=== PATIENT | female | born 1980 | race Asian ===

== ENCOUNTER → 2021-05-31 13:32 | Outpatient (BNVA) | payer OTHER, SELFPAY | PROVIDERS: Visit Provider Advanced Practice Midwife ==

== ENCOUNTER 2021-08-22 16:14 | Outpatient (REF) | payer OTHER, SELFPAY ==
--- NOTE | ~2021-08-22 | MM_ITS ---
EXAMINATION: MM SCREENING DIGITAL BREAST TOMOSYNTHESIS, BILATERAL CLINICAL INFORMATION: Screening. Asymptomatic. Age 41. No prior breast imaging. The lifetime risk of breast cancer based on the Tyrer-Cuzick Model is 13%. COMPARISON: None (current study represents initial baseline exam). TECHNIQUE: Digital breast tomosynthesis is performed in both the craniocaudal and mediolateral oblique views along with computer-aided detection (CAD). Synthesized 2D images are generated from the tomosynthesis. FINDINGS: The breasts are heterogeneously dense, which may obscure small masses (ACR BI-RADS breast composition Category c). There are no significant masses, abnormal calcifications, or other abnormalities. The axilla and skin contours are unremarkable. MM/MM tomosynthesis screening BI IMPRESSION: No mammographic evidence of malignancy. ASSESSMENT: BI-RADS 1: Negative RECOMMENDATION: Routine annual mammography screening. This patient's information was entered into a reminder system with a target due date for their next mammogram.
== END 2021-08-22 16:15 | disposition home or self-care (01) ==
LOC: HO.MAMMO 16:14
PROVIDERS: PCP Family Medicine; Visit Provider Advanced Practice Midwife
DX: Z12.31 Encounter for screening mammogram for malignant neoplasm of breast (principal)
CPT/HCPCS: 77063; 77067

== ENCOUNTER 2022-06-07 13:25 | Outpatient (REF) | payer OTHER, SELFPAY ==
[2022-06-08 06:34] LABS: CT PCR NOT DETECTED (Not Detect.); NG PCR NOT DETECTED (Not Detect.)
[2022-06-09 21:16] LABS: HPV mRNA E6/E7 rflx Not Detected (Not Detected)
== END 2022-06-07 13:26 | disposition home or self-care (01) ==
LOC: HO.LAB 13:25
PROVIDERS: Visit Provider Advanced Practice Midwife
DX: Z01.419 Encounter for gynecological examination (general) (routine) without abnormal findings (principal); Z11.51 Encounter for screening for human papillomavirus (HPV); Z20.2 Contact with and (suspected) exposure to infections with a predominantly sexual mode of transmission
CPT/HCPCS: 87491; 87591; 87624; 88142

== ENCOUNTER 2022-08-24 09:18 | Outpatient (REF) | payer OTHER, SELFPAY ==
--- NOTE | ~2022-08-24 | MM_ITS ---
EXAMINATION: MM SCREENING DIGITAL BREAST TOMOSYNTHESIS, BILATERAL CLINICAL INFORMATION: Screening. Asymptomatic. The lifetime risk of breast cancer based on the Tyrer-Cuzick Model is 12.5%. COMPARISON: Mammography: August 22, 2021 TECHNIQUE: Digital breast tomosynthesis is performed in both the craniocaudal and mediolateral oblique views along with computer-aided detection (CAD). Synthesized 2D images are generated from the tomosynthesis. FINDINGS: The breasts are extremely dense, which lowers the sensitivity of mammography (ACR BI-RADS breast composition Category d). There are no significant masses, abnormal calcifications, or other abnormalities. MM/MM tomosynthesis screening BI IMPRESSION: No significant change from ASSESSMENT: BI-RADS 1: Negative RECOMMENDATION: Routine annual mammography screening. This patient's information was entered into a reminder system with a target due date for their next mammogram.
== END 2022-08-24 09:19 | disposition home or self-care (01) ==
LOC: HO.MAMMO 09:18
PROVIDERS: Visit Provider Advanced Practice Midwife
DX: Z12.31 Encounter for screening mammogram for malignant neoplasm of breast (principal)
CPT/HCPCS: 77063; 77067

== ENCOUNTER 2023-04-18 08:16 | Outpatient (AMB) | payer OTHER, SELFPAY ==
[2023-04-18 08:18] VITALS: BP 129/62; PULSE 75; BMI 24.4
--- NOTE | 2023-04-18 08:18 | A.OFFVIS_ITS ---
Intake Vital Signs 04/18/23 08:18 Height 4 ft 11 in Weight 121 lb BMI 24.4 BP 129/62 Blood Pressure Location Rt brachial Position Sitting Pulse 75 Intake Visit Reasons: external hemorrhoids Intake Note: This patient presents for an assessment for external hemorrhoids. Patient c/o; ? perianal abscess, denies draining or bleeding, hard stools. Photolettering Machine Operator Required: No Adult Educator: Adult Educator offered & declined Accompanied by: Self / Same As Patient Allergies No Known Allergies [No Known Allergies*] Allergy (Verified 04/18/23 08:31) Medication List - Last Reconciled 04/18/23 by Dominic Ramirez MD No Known Home Meds PNV,calcium 18-kozj-ofhrv acid 27 mg iron- 1 mg ( Vitamins Plus Low Iron) 1 tab PO DAILY HPI external hemorrhoids HPI Details 42-year-old female referred for anal swelling. She 1st noticed this about 2 months ago. She says that 1 area of her anus swelled up with subsequent pain discomfort. This appeared to have drained spontaneously. She described relief of her but she says that a week or 2 later, this had becomes more swollen again and drained spontaneously as well. She says she may have had this for about 2-3 times already. She states that at this time, she feels well and denies any swelling. She describes the drainage as serosanguineous but may year as ?pus . She thinks that this swelling may have been worsen when she ever she had hard stools. She denies a history of constipation. [facility] Medical History (Updated 04/18/23 @ 08:59 by Dominic Ramirez MD) Anal pain COVID-19 vaccine series completed Surgical History Hx of section Family History Mother High blood pressure Social History Household Members: Spouse and Children Alcohol intake: never Patient Tobacco Use Status: Never used Tobacco Current occupational status: unemployed Current occupation: stay at home mom Review of Systems Const Denies chills and Denies fever(s) Card Denies chest pain, Denies dyspnea and Denies dyspnea on exertion Resp Denies cough, Denies dyspnea and Denies dyspnea on exertion GI Denies hematochezia and Denies change in bowel habits Denies hematuria Musc Denies back pain and Denies limited range of motion Neuro Denies focal weakness and Denies convulsions Psych Denies depression and Denies mood swings Physical Exam Vital Signs: Last Vital Signs Pulse 75 04/18/23 08:18 BP 129/62 04/18/23 08:18 BMI result Body Mass Index 24.4 Const General: comfortable and no acute distress Orientation/consciousness: patient oriented x3 Neck Neck: Yes no lymphadenopathy Resp Auscultation: clear to auscultation bilaterally Cardio Rhythm: regular rhythm GI Other: Rectal exam - mild induration on the right posterolateral area at the anal verge, with a small sinus, dry, no tenderness, no fluctuance, no discharge at t his time Palpation (GI): Soft to palpation, nontender and no guarding Neuro General: patient oriented x3 Office Procedures Anoscopy She was placed in leti-knife position. The anoscope was gently inserted. A full examination of the anal canal was done. There was no obvious internal fistulous opening. No induration. She had a mixed column of internal external hemorrhoids on the left side. There was no fissure or obvious induration in the anal canal itself, no discharge [id number] Assessment & Plan Assessment & Plan (1) Anal pain: Code(s): K62.89 - Other specified diseases of anus and rectum Plan: She has had this episodes of swelling on the right side her anus with spontane ous drainage. Examination currently does not reveal any fluctuance or discharge although there may be a little bit of induration with a small sinus. This may be perianal cyst at the anal verge as I do not see any obvious fistulous tract. Another differential is a chronically thrombosed hemorrhoid that may have been draining. I offered her the option of proceeding with exam under anesthesia. Explained to her the technique of this procedure as well as the possibility of proceeding with seton drainage. At this time, she says that this is really not bothering her. She says she will come back to the office if she decides to proceed. Coding Level of Care Code New Pt Level 3 (59217) Diagnoses Anal pain K62.89 CPT Codes Details - CPT: 97729-[id number] ([id number])
== END 2023-04-18 08:49 | disposition home or self-care (01) ==
PROVIDERS: PCP Family Medicine; Visit Provider Surgery
DX: K64.8 Other hemorrhoids (principal); K62.89 Other specified diseases of anus and rectum
CPT/HCPCS: 46600; 99203

== ENCOUNTER → 2023-04-18 08:16 | Outpatient (BNVA) | payer OTHER, SELFPAY | PROVIDERS: PCP Family Medicine; Visit Provider Surgery | DX: K62.89 Other specified diseases of anus and rectum (principal); K64.4 Residual hemorrhoidal skin tags | CPT/HCPCS: 46600 ==

== ENCOUNTER 2023-08-29 09:48 | Outpatient (REF) | payer OTHER, SELFPAY ==
--- NOTE | ~2023-08-29 | MM_ITS ---
EXAMINATION: MM SCREENING DIGITAL BREAST TOMOSYNTHESIS, BILATERAL CLINICAL INFORMATION: Screening. Asymptomatic. COMPARISON: Mammography: This study is compared with the prior exams dating back to 2020. TECHNIQUE: Digital breast tomosynthesis is performed in both the craniocaudal and mediolateral oblique views along with computer-aided detection (CAD). Synthesized 2D images are generated from the tomosynthesis. FINDINGS: The breasts are heterogeneously dense, which may obscure small masses (ACR BI-RADS breast composition Category c). At the inferior most aspect of the left breast, at the fat glandular interface and at a middle depth, there is a small asymmetry for which additional mammographic and targeted sonographic imaging is advised. In the right breast, there are no significant masses, abnormal calcifications, or other abnormalities. There are few, unchanged, bilateral benign calcifications in each breast. MM/MM tomosynthesis screening BI IMPRESSION: Left breast asymmetry warrants additional mammographic and targeted sonographic evaluation. No mammographic signs of malignancy right breast. ASSESSMENT: BI-RADS BI-RADS 0 - Incomplete: Needs additional Imaging. RECOMMENDATION: 1. Additional views of the left breast 2. Targeted ultrasound if warranted after review of the additional views. 3. Radiology department staff will contact the patient for additional imaging. Additional Imaging required This examination should not preclude the clinical evaluation of a suspicious palpable abnormality. This patient's information was entered into a reminder system with a target due date for their next mammogram.
== END 2023-08-29 09:49 | disposition home or self-care (01) ==
LOC: HO.MAMMO 09:48
PROVIDERS: PCP Family Medicine; Visit Provider Family Medicine
DX: Z12.31 Encounter for screening mammogram for malignant neoplasm of breast (principal)
CPT/HCPCS: 77063; 77067

== ENCOUNTER → 2023-08-29 10:00 | Outpatient (BNV) | payer OTHER, SELFPAY | PROVIDERS: PCP Family Medicine; Visit Provider Radiology Diagnostic Radiology | DX: Z12.31 Encounter for screening mammogram for malignant neoplasm of breast (principal) | CPT/HCPCS: 77063; 77067 ==

== ENCOUNTER 2023-10-10 12:50 | Outpatient (REF) | payer OTHER, SELFPAY | END 2023-10-10 12:51 | disposition home or self-care (01) | LOC: HO.MAMMO 12:50 | PROVIDERS: PCP Family Medicine; Visit Provider Family Medicine | DX: R92.8 Other abnormal and inconclusive findings on diagnostic imaging of breast (principal) | CPT/HCPCS: 77061; 77065 ==

== ENCOUNTER → 2023-10-10 13:00 | Outpatient (BNV) | payer OTHER, SELFPAY | PROVIDERS: PCP Family Medicine; Visit Provider Radiology Diagnostic Radiology | DX: R92.8 Other abnormal and inconclusive findings on diagnostic imaging of breast (principal) | CPT/HCPCS: 77061; 77065 ==

== ENCOUNTER 2023-10-11 12:42 | Outpatient (AMB) | payer OTHER, SELFPAY ==
--- NOTE | 2023-10-11 12:44 | MHC.OFFVIS ---
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 Doing well with no concerns. She tries to eat healthy and stays active with exercise. Regular monthly menses. Currently is sexually active. She denies vaginal itching and irritation. STI screening offered; she declines. Denies family history of breast, ovarian or colon cancer. Last pap smear 2021, negative. Mammogram: 10/10/2023. [facility] Medical History Anal pain COVID-19 vaccine series completed Surgical History Hx of section Family History (Updated 10/11/23 @ 13:02 by Jessie Lemos CNM) Mother High blood pressure Maternal Grandmother Ovarian cancer Social History Household Members: Spouse and Children Alcohol intake: never Patient Tobacco Use Status: Never used Tobacco Current occupational status: unemployed Current occupation: stay at home mom Female Reproductive History Menstrual Date of last menstrual period: 08/27/23 Total pregnancies: 1 Full term: 1 Number of Living Children: 1 Date of last pap smear: 06/07/22 (neg pap and hpv) Date of Mammogram: 08/29/23 (Birad 0) Review of Systems Const All systems reviewed & are unremarkable except as noted in HPI and below Reports as per HPI Eyes Reports no additional complaints ENT Reports no additional complaints Card Reports no additional complaints Resp Reports no additional complaints GI Reports as per HPI and Reports no additional complaints Reports as per HPI Musc Reports no additional complaints Skin/Breast Reports as per HPI Neuro Reports no additional complaints Psych Reports no additional complaints Endo Reports no additional complaints Charlie/Lymph Reports no additional complaints Aller/Immun Reports no additional complaints Physical Exam Vital Signs: Last Vital Signs BP 92/60 01/04/24 12:46 BMI result Body Mass Index 24.6 Const General: cooperative, healthy appearing, no acute distress, well developed and alert Orientation/consciousness: patient oriented x3 HEENT Head: Yes normal to inspection Eyes General: appearance normal, both eyes and all related structures Neck Neck: Yes normal visual inspection Thyroid: Thyroid normal Chest Chest palpation & inspection: normal inspection of the chest and other (no puckering, dimpling, peau de orange, retraction, discharge, masses) Breast/axilla inspection: normal inspection of the breasts Breast/axilla palpation: normal palpation of the breasts Resp Effort & Inspection: normal respiratory effort GI Inspection: Yes normal to inspection Palpation (GI): Soft to palpation Rectal Exam - Female: deferred General: Yes bladder normal to palpation External Female Exam: normal external appearance and normal appearance of the urethra Speculum Exam - Vagina: normal appearance of the vagina, normal palpation and normal vaginal discharge Speculum Exam - Cervix: normal appearance of the cervix and normal palpation Bimanual exam- vagina & uterus: normal bimanual exam, normal palpation, uterine size normal, bladder normal to palpation, normal palpation and non-tender Bimanual Exam- Adnexa, other: no masses Skin General skin exam: no rashes or lesions noted Rashes: no rashes Neuro General: patient oriented x3 Cognition (Neuro): normal cognition Extrem General: Yes normal to inspection Psych Attitude: cooperative Thought process: Normal thought process present Assessment & Plan Assessment & Plan (1) Encounter for annual routine gynecological examination: Code(s): Z01.419 - Encounter for gynecological examination (general) (routine) without abnormal findings Plan: Discussed: Current recommendations for pap smears per ASCCP guidelines. Breast awareness and periodic breast exams. Maintain a healthy lifestyle including a well balanced diet and routine exercise. Declines control. Mammogram yearly. Colonoscopy >45, or at risk sooner. All of her questions and concerns were addressed to the best of my ability. RTO in one year for annual transportation specialist examination. This note is constructed using voice recognition software. While every effort has been made to ensure accuracy, liquor grinder mill operator errors may have been included. Coding Level of Care Code Est Pt Prev Care 40-64y(85103) Diagnoses Encounter for annual routine gynecological examination Z01.419
[2023-10-11 12:46] VITALS: BP 92/60; BMI 24.6
== END 2023-10-11 13:12 | disposition home or self-care (01) ==
LOC: HO.HWS 12:42
PROVIDERS: PCP Family Medicine; Visit Provider Advanced Practice Midwife
DX: Z01.419 Encounter for gynecological examination (general) (routine) without abnormal findings (principal)
CPT/HCPCS: 99396

== ENCOUNTER → 2023-10-11 12:42 | Outpatient (BNVA) | payer OTHER, SELFPAY | PROVIDERS: PCP Family Medicine; Visit Provider Advanced Practice Midwife ==

== ENCOUNTER 2024-10-09 12:59 | Outpatient (AMB) | payer OTHER, SELFPAY ==
--- NOTE | 2024-10-09 13:02 | A.OFFVIS_ITS ---
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 Doing well with drywall sander concerns. Regular monthly menses. Currently is sexually active. She denies vaginal itching and irritation. STI screening offered; she declines. She tries to eat healthy and stays active with exercise. Denies family history of breast or colon cancer. FH ovarian cancer. Last pap smear 2021, negative. Mammogram: 2023. [facility] Medical History Anal pain COVID-19 vaccine series completed Surgical History Hx of section Family History (Updated 10/09/24 @ 13:08 by JAIME Cole) Mother High blood pressure Maternal Grandmother Ovarian cancer Social History Household Members: Spouse and Children Alcohol intake: never Patient Tobacco Use Status: Never used Tobacco Current occupational status: unemployed Current occupation: stay at home mom Female Reproductive History Menstrual Duration of menses: 3-5 days Date of last menstrual period: 09/21/24 control method: natural family planning and other (Withdrawal) Total pregnancies: 1 Full term: 1 Number of Living Children: 1 Date of last pap smear: 06/07/22 (neg pap and hpv) Date of Mammogram: 10/10/23 (birad 2) Review of Systems Const All systems reviewed & are unremarkable except as noted in HPI and below Reports as per HPI Eyes Reports no additional complaints ENT Reports no additional complaints Card Reports no additional complaints Resp Reports no additional complaints GI Reports as per HPI and Reports no additional complaints Reports as per HPI Musc Reports no additional complaints Skin/Breast Reports as per HPI Neuro Reports no additional complaints Psych Reports no additional complaints Endo Reports no additional complaints Charlie/Lymph Reports no additional complaints Aller/Immun Reports no additional complaints Physical Exam Vital Signs: Last Vital Signs BP 96/60 01/02/25 13:03 BMI result Body Mass Index 24.6 Const General: cooperative, healthy appearing, no acute distress, well developed and alert Orientation/consciousness: patient oriented x3 HEENT Head: Yes normal to inspection Eyes General: appearance normal, both eyes and all related structures Neck Neck: Yes normal visual inspection Thyroid: Thyroid normal Chest Chest palpation & inspection: normal inspection of the chest and other (no puckering, dimpling, peau de orange, retraction, discharge, masses) Breast/axilla inspection: normal inspection of the breasts Breast/axilla palpation: normal palpation of the breasts Resp Effort & Inspection: normal respiratory effort GI Inspection: Yes normal to inspection and Yes scar Palpation (GI): Soft to palpation Rectal Exam - Female: deferred General: Yes bladder normal to palpation External Female Exam: normal external appearance and normal appearance of the urethra Speculum Exam - Vagina: normal appearance of the vagina, normal palpation and normal vaginal discharge Speculum Exam - Cervix: normal appearance of the cervix and normal palpation Bimanual exam- vagina & uterus: normal bimanual exam, normal palpation, uterine size normal, bladder normal to palpation, normal palpation and non-tender Bimanual Exam- Adnexa, other: no masses Skin General skin exam: no rashes or lesions noted Rashes: no rashes Neuro General: patient oriented x3 Cognition (Neuro): normal cognition Extrem General: Yes normal to inspection Psych Attitude: cooperative Thought process: Normal thought process present Assessment & Plan Assessment & Plan (1) Encounter for annual routine gynecological examination: Code(s): Z01.419 - Encounter for gynecological examination (general) (routine) without abnormal findings Category: Medical Plan Discussed: Current recommendations for pap smears per ASCCP guidelines. Breast awareness and periodic breast exams. Mammogram yearly. Maintain a healthy lifestyle including a well balanced diet and routine exercise. Perimenopause changes, if missed menses to do a home test and report to the office if positive. Patient verbalizes understanding and agrees to the plan of care. She was given opportunity to ask questions and all questions were answered to the best of my ability. RTO in one year for annual drywall sander examination. This note is constructed using voice recognition software. While every effort has been made to ensure accuracy, automatic driller and reamer errors may have been included. Coding Level of Care Code Est Pt Prev Care 40-64y(30891) Diagnoses Encounter for annual routine gynecological examination Z01.419
[2024-10-09 13:03] VITALS: BP 96/60; BMI 24.6
== END 2024-10-09 13:47 | disposition home or self-care (01) ==
PROVIDERS: PCP Family Medicine; Visit Provider Advanced Practice Midwife
DX: Z01.419 Encounter for gynecological examination (general) (routine) without abnormal findings (principal)
CPT/HCPCS: 99396; 99459

== ENCOUNTER → 2024-10-09 12:59 | Outpatient (BNVA) | payer OTHER, SELFPAY | PROVIDERS: PCP Family Medicine; Visit Provider Advanced Practice Midwife ==

== ENCOUNTER 2024-10-22 13:40 | Outpatient (REF) | payer OTHER, SELFPAY ==
--- OUTSIDE RECORDS SUMMARY | 2024-10-22 16:09 | XMS_ITS | Data Portability ---
[facility] , [facility] Address [address] [place] [address] Care Team Providers Care Outreach Librarian Name Role Phone LULU ESCALERA Primary Care Provide r [facility] [address] Mender Assessment No assessment recorded. Plan of Treatment Reminders Order Date Submit Date Provider Last Modified By Organization Details Last Modified Time Details Appointments None recorded. Lab rapid strep group A, throat 2022 023 [facility], [address] [place], [address], 3 14:45:51 Referral general surgeon referral - hx of ext hemorrhoid s but in the past 2 months hx of perirectal abscess (urgent care) and then again last week but resolved after drainage. Please eval and tx. 2022 023 [email or web address] Nidhi Acosta MD, [address] , [place], [address], 3 10:18:42 Procedures None recorded. Surgeries None recorded. Imaging None recorded. Medication Orders simethicon e 125 mg capsule 2022 023 [email or web address], [address] [place], [address], 3 14:06:28 hydroxyzin e HCl 10 mg tablet 2022 023 [email or web address], [address] [place], [address], 14:06:35 loratadine 10 mg tablet 2022 023 [facility], [address] [place], [address], 14:06:42 Patient TargetsNo targets recorded. Patient Instructions Encounter Date Encounter Id Patient Instructions Last Modified By Organization Details Last Modified Time 03/01/2023 [id number] pityriasis rosea: care instructions [email or web address] Not available 03/01/2023 14:04:23 Upper Respiratory Infection Drink plenty of fluids, such as water, diluted juice, decaffeinated tea, or clear broth. Avoid dairy products if they cause you congestion. Use a nasal rinse, such as Netti Pot. Keep room humidified and take warm showers for the steam. Over the counter products for congestion and cough are OK, but will only provide partial relief. If you have high blood pressure, check with your pharmacist for safe alternatives. Remember that cold symptoms can last as long as 2-3 weeks: stuffiness, cough and sore throat. Mucinex (generic name is guaifenesin) can help thin mucus and make the cough easier to break up. Please call if your symptoms worsen considerably in 3 days, or you have a high fever. [email or web address] Not available 03/01/2023 13:37:02 04/13/2023 [id number] After a discussion of treatment and medication options, which included consideration of the best practices in medicine, a medical plan was provided. The patient's opinions and concerns were included in this treatment plan and goal. 1. we do not have the urgent care note 2. most likely, pt had a thrombosed hemorrhoid? exam today was normal with a skin tag 3. referral to general surgery of excision carlos Not available 04/14/2023 21:33:57 08/24/2023 [id number] Well Visit, Ages 18 to 65: Care Instructions carlos Not available 08/24/2023 16:16:15 After a discussion of treatment and medication options, which included consideration of the best practices in medicine, a medical plan was provided. The patient's opinions and concerns were included in this treatment plan and goal. * Maintain 1200 mg of calcium from food sources daily, * Take vitamin D 7500-6948 units daily to help absorption of calcium into your bones * Use sunblock consistently * Review the website: OldN4G.compt.org to get more information on the Mediterranean diet - a heart healthy eating plan * Immunizations up to date; COVID vaccine booster recommended. Please get your Shingrix at the pharmacy. * The current guidelines from the [place] [employer] is moderate aerobic physical activity about 30 minutes for 5 days of the week. Walking at a moderately fast pace, as tolerated. Try to build muscle mass. This will help maintain bone strength and support your joints. * Pap smear is due 2023. * Normal cytology and negative HPV in 2019. * Colonoscopy is due age 46. * Health care proxy discussed and no changes. * Wellness Visit in 1 year * See your dentist at least twice a year. * Get your vision checked at least once every 2 years. * Discussed labs - 2020 excellent * when rash on leg recurs, will take a photo and send via portal. carlos Not available 08/24/2023 21:25:33 Reason for Referral General Surgeon Referral for External hemorrhoids hx of ext hemorrhoids but in the past 2 months hx of perirectal abscess (urgent care) and then again last week but resolved after drainage. Please eval and tx. Referring Physician: Lulu Barlow, Family Medicine, Encounter Date: 04/13/2023 Results Created Date Observation Date Name Description Value Unit Range Abnormal Flag Note LastModifiedBy Organization Detail LastModifiedTime 03/01/20 23 03/01/2023 POCST REP strep A POC NEGATI VE Not Available [facility] [address] [place], [address], 03/01/2023 13:55:21 09/14/20 23 08/29/2023 MAMMO , scree gigi, tomos ynthe sis, bilat eral No observ ation record ed. deya [facility] [address] [place], [address], 10/10/2023 19:04:19 10/11/19 24 10/10/2023 MAMMO , diagn ostic , tomos ynthe sis, unila teral No observ ation record ed. [facility] [address] [place], [address], 10/12/2023 14:01:30 Result Notes None recorded. Problems No Known Problems Procedures Surgical History Date Name Laterality Status Provider Name and Address Organization Details Recorded Time prevention-ros ua alcohol misuse screening completed Gina Allred [facility] 04/14/2021 07:39:35 4 Anoscopy completed Lulu Barlow MD [address] [place] [address], [phone], [facility] 12/21/2013 06:42:43 Imaging Results Imaging Date Name Status LastModified by Organization Details LastModified Time 08/29/2023 MAMMO, screening, tomosynthesis, bilateral completed carlos [address] [place], [address], 10/10/2023 19:04:19 10/10/2023 MAMMO, diagnostic, tomosynthesis, unilateral completed [address] [place], [address], 10/12/2023 14:01:30 Procedure Notes None recorded. Medical Equipment None Reported. Allergies No known drug allergies Medications Name Sig Start Date Stop Date Status Note LastModified by Organization Details LastModified Time clindamyci n phosphate 1 % lotn 05/23 completed Not Available Not Available Not Available doxycyclin e monohydrat e 50 mg tabs 05/23 completed Not Available Not Available Not Available desonide 0.05 % topical cream APPLY SPARINGL Y AND RUB GENTLY INTO THE AFFECTED AREA(S) TWICE A DAY FOR 4 WEEKS 08/24 completed Not Available Not Available Not Available hydrocorti sone 1 % lotion APPLY TO AFFECTED AREA(S) TWO TIMES A DAY FOR 10 DAYS 05/23 completed Not Available Not Available Not Available metronidaz ole 500 mg tablet 08/24 completed Not Available Not Available Not Available Vitamin tablet Take 1 tablet every day by oral route as needed for 90 days. 08/24 completed Not Available Not Available Not Available cephalexin 500 mg capsule 05/23 completed Not Available Not Available Not Available diphenhydr amine 25 mg capsule TAKE ONE CAPSULE BY MOUTH EVERY 6 HOURS FOR 7 DAYS 05/23 completed Not Available Not Available Not Available Mapap (acetamino phen) 325 mg tablet TAKE TWO TABLETS BY MOUTH EVERY 6 HOURS NEEDED 05/23 completed Not Available Not Available Not Available Gas Relief Extra Strength 125 mg capsule TAKE ONE CAPSULE BY MOUTH EVERY 6 HOURS NEEDED 08/24 completed Not Available Not Available Not Available lidocaine HCl 2 % mucosal solution TAKE 10 ML BY MOUTH EVERY 4 TO 6 HOURS NEEDED active Not Available Not Available No t Available hydrocorti sone 2.5 % topical cream APPLY A THIN LAYER TOPICALL Y TO AFFECTED AREA S) TWO TIMES A DAY active Not Available Not Available No t Available ibuprofen 600 mg tablet as needed 12/22 completed Not Available Not Available Not Available polyethyle ne glycol 3350 17 gram/dose oral powder USE 1 CAPFUL DISSOVED IN 4-8 OUNCES LIQUID PRIOR TO ADMINIST RATION ONCE DAILY NEEDED. MAX OF 1 CAPFUL PER DAY 08/24 completed as needed Not Available Not Available Not Available hydroxyzin e HCl 10 mg tablet TAKE 1 TABLET BY MOUTH EVERY 8 HOURS NEEDED. 08/24 completed Not Available Not Available Not Available loratadine 10 mg tablet TAKE ONE TABLET BY MOUTH EVERY DAY 08/24 completed Not Available Not Available Not Available amoxicilli n 875 mg-potassi um clavulanat e 125 mg tablet 04/13 completed Not Available Not Available Not Available clindamyci n phosphate 1 % topical solution APPLY TO AFFECTED AREA ON CHEST AND BACK TWICE A DAY NEEDED active Not Available Not Available No t Available oxycodone 5 mg tablet 05/23 completed Not Available Not Available Not Available Vitamins Plus Low Iron 27 mg iron-1 mg tablet TAKE ONE TABLET BY MOUTH EVERY DAY 08/24 completed Not Available Not Available Not Available Vitals Date Recorded Body weight Heart rate Systolic blood pressure Diastolic blood pressure Provider Name and Address Organization Details Last Updated DateTime 02/02/2023 45097.78 g 84 /min 110 mm[Hg] 78 mm[Hg] [facility] 02/02/2023 11:28:41 Date Recorded Body height Body mass index (BMI) Body weight Body temperature Heart rate Systolic blood pressure Diastolic blood pressure Provider Name and Address Organization Details Last Updated DateTime 3 148.59 cm 4.3 kg/m2 9525.44 g 98.6 [degF] 71 /min 128 mm[Hg] 62 mm[Hg] Monica Leal [facility] 3 13:45:11 Date Recorded Body height Body mass index (BMI) Body weight Heart rate Systolic blood pressure Diastolic blood pressure Provider Name and Address Organization Details Last Updated DateTime 3 148.59 cm 25 kg/m2 03858.4 8 g 68 /min 104 mm[Hg] 68 mm[Hg] Katia Dongyajaira [facility] 3 09:57:20 Date Recorded Body height Body mass index (BMI) Body weight Heart rate Systolic blood pressure Diastolic blood pressure Provider Name and Address Organization Details Last Updated DateTime 3 147.32 cm 25.1 kg/m2 24813.0 8 g 80 /min 108 mm[Hg] 68 mm[Hg] [facility] 14:10:15 Social History Question Answer Notes LastModified by Organizat ion Details LastModified Time Tobacco Smoking Status Never Smoker Lulu Barlow MD [address] [place] [address], [phone], [facility] 04/03/2014 15:00:44 What Is Your Level Of Alcohol Consumption? None Information not available 12/22/2016 What Is Your Level Of Caffeine Consumption? None Information not available 12/22/2016 What Type Of Diet Are You Following? REGULAR Information not available 12/22/2016 Which Illicit Or Recreational Drugs Have You Used? None Information not available 12/22/2016 Do You Or Have You Ever Used E-cigarettes Or Vape? Never Used Electronic Cigarettes Information not available 04/14/2021 How Many Days In The Past Year Have You Had A Heavy Drinking Consumption (4+ Female, 5+ Male)? 0 Information not available 04/03/2014 Are There Any Guns Present In Your Home? No Information not available 12/22/2016 Live Alone Or With Others? With Others Srinath gonzalez Information not available 04/03/2014 Does The Patient Have Difficulty Speaking Guyanese? No Information not available 06/25/2015 Does The Patient Have Difficulty Reading Guyanese? No Information not available 06/25/2015 Patient Has Health Care Proxy Signed And In Chart Yes [email or web address] Information not available 11/22/2018 Marital Status Inf ormation not available 12/19/2013 Mosquito Repellent Used Routinely No Information not available 12/22/2016 What Was The Date Of Your Most Recent Tobacco Screening? 08/24/2023 Information not available 08/24/2023 How Many Children Do You Have? 1 Lizzeth Female February 2016 Information not available 05/23/2016 Seat Belts Used Routinely Yes Information not available 12/22/2016 Smoke Alarm In Home Yes Information not available 12/22/2016 Do You Or Have You Ever Used Smokeless Tobacco? Never Used Smokeless Tobacco Information not available 04/14/2021 What Types Of Sporting Activities Do You Participate In? None Information not available 12/22/2016 Do You Use Sunscreen Routinely? Yes Information not available 12/22/2016 Do You Or Have You Ever Used Any Other Forms Of Tobacco Or Nicotine? No Information not available 08/24/2023 Sex: Female Functional Status None recorded. Mental Status None recorded. Family History Relationship Description Onset Age of this Age Resolved Age Notes LastModified by Organization Details LastModified Time Mother Hypertensive disorder jackcast illo Not available 04/03/2014 15:00:44 Father Malignant tumor of lung 65 65 briandelcast illo Not available 08/24/2023 14:31:46 Sister Diabetes mellitus 37 [email or web address] illo Not available 08/24/2023 14:32:07 Medical History No medical history recorded. Gynecological History Statement/Question Response Menses Monthly N History of Abnormal Pap No Current Control Method None Date of LMP 10/13/2018 Obstetrics History GPAL:G 0 P 0 0 0 0 Immunizations Vaccine Type Date Status Note Provider Nam e and Address Organization Details Recorded Time Tdap 04/03/2014 completed Not Available [facility] 10/25/2019 02:16:08 COVID-19, mRNA, LNP-S, PF, 30 mcg/0.3 mL dose 02/17/2021 completed Summer Coello CMA null, [facility] 02/21/2021 10:02:35 COVID-19, mRNA, LNP-S, PF, 30 mcg/0.3 mL dose 01/27/2021 completed Gina Allred MA null, [facility] 04/14/2021 11:39:59 COVID-19, mRNA, LNP-S, PF, 30 mcg/0.3 mL dose 02/17/2021 completed COLTEN Mackenzie, [facility] 04/14/2021 11:40:38 Influenza, split virus, quadrivalent, PF 08/24/2023 completed Lulu Barlow MD [address] [place] [address], [phone] 08/24/2023 21:23:56 Influenza, split virus, trivalent, PF 08/15/2024 completed Pati Hooks RN null, [facility] 08/15/2024 14:01:52 Past Encounters Encounter ID Performer Location Encounter Start Date Encounter Closed Date Diagnosis/Indication Diagnosis SNOMED-CT Code Diagnosis ICD10 Code Diagnosis Note [id number] YANETH Kerr, [facility], OFF[address] [place] [address] 12/19/2013 13:50:45 12/19/2013 15:21:17 Hemorrhoids 04925718 Acne 37079240 Secondary physiologic amenorrhea 31262493 [id number] YANETH Kerr, [facility], [address] [place] [address] 04/03/2014 14:27:49 04/03/2014 15:20:05 Adult health examination 451299489 see Risk Assessment and Lifestyle Change Counseling section above Counseling 360057821 Screening for malignant neoplasm of cervix 854929222 Acne 91872677 Constipation 77960591 Administra tion of diphtheria, pertussis, and tetanus vaccine 862294811 [id number] Lulu Barlow MD , [facility], OFFICE [address] [place] [address] 06/25/2015 07:43:00 06/25/2015 08:24:07 Amenorrhea 51456394 test positive 477016968 [id number] Lulu Barlow MD , [facility], OFFICE [address] [place] [address] 05/23/2016 11:05:06 05/23/2016 12:36:25 External hemorrhoids 21970312 K64.4 [facility] 43953531 K5 9.00 [id number] Lulu Barlow MD , [facility], OFFICE [address] [place] [address] 11/21/2016 10:05:58 11/22/2016 15:11:17 Acute urticaria 289399562 L50.9 [id number] Lulu Barlow MD , [facility], OFFICE [address] [place] [address] 12/22/2016 13:51:29 12/25/2016 13:37:54 Adult health examination 574757310 Z00.00 see Risk Assessment and Lifestyle Change Counseling section above Counseling 036620179 Z71 .9 [id number] Lulu Barlow MD , [facility], OFFICE [address] [place] [address] 11/22/2018 09:37:01 11/22/2018 10:35:40 Adult health examination 095630054 Z00.00 see Risk Assessment and Lifestyle Change Counseling section above Counseling 884308603 Z71 .9 Depression screening 171 617655 Z13.89 depression screening tool administer ed, entered into emr, scored and discussed, time greater than 7.5 minutes Screening for malignant neoplasm of cervix 466316730 Z12.4 [id number] Sebastian Hancock PA-C FP, [facility], OFFICE [address] [place] [address] 01/31/2019 10:14:28 01/31/2019 11:00:44 Atopic dermatitis 82842876 L20.9 Refer to discussion section for complete summary of visit. [id number] Lulu Barlow MD , [facility], [address] [place] [address] 04/14/2021 11:17:39 04/18/2021 08:27:45 Adult health examination 202516471 Z00.00 see Risk Assessment and Lifestyle Change Counseling section above Counseling 916753181 Z71 .9 Depression screening 171 697557 Z13.31 depression screening tool administer ed, entered into emr, scored and discussed, time greater than 7.5 minutes Screening for alcohol abuse 384227555 Z13.39 Screening for disorder 498217284 Z11.59 Eczema 50269707 L30.9 Irregular periods 750437 07 N92.6 [id number] FELICITA SAXENA , [facility], OFFICE [address] [place] [address] 02/02/2023 11:21:00 02/02/2023 11:58:32 Abdominal bloating 314939720 R14.0 Patient was 3 days of intermitte nt abdominal pain/fulln ess, was preceded by sore throat and runny nose, symptoms slightly improved since onset. Reportedly afebrile, able to tolerate p.o. intake, urinating and moving bowels like normal. Abdominal exam reassuring . Suspect viral gastroente ritis versus gas. Will trial simethicon e, can continue Pepto-Bism ol as needed, discussed breath diet. Follow-up as needed-if symptoms do not continue to improve over the next few days or new symptoms develop. [id number] Zena Minaya DNP, APPLICATION SYSTEMS ADMINISTRATOR-BC , [facility], OFFICE [address] [place] [address] 03/01/2023 13:36:45 03/01/2023 14:10:06 Acute upper respiratory infection 36820540 J06.9 Cold self care measures reviewed and encouraged (fluids, steam inhalation , adequate rest). F/U if symptoms worsen or aren't resolving. Pain in throat 081868520 R07.0 rapid strep neg Eruption 139072663 R21 ? related to antibiotic use, recent augment, vs viral exanthem or pityriasis roseaStrep negative Trial of hydroxyzin e 10 mg every 8 hrs as neededClar itin OTC 10 mg tab daily [id number] Lulu Barlow MD , [facility], [address] [place] [address] 04/13/2023 09:40:15 04/13/2023 10:29:01 External hemorrhoids 47148485 K64.4 [id number] Lulu Barlow MD , [facility], [address] [place] [address] 08/24/2023 13:50:20 08/24/2023 14:49:15 Adult health examination 517944958 Z00.00 see Risk Assessment and Lifestyle Change Counseling section above Depression screening 171 212337 Z13.31 depression screening tool administer ed Screening for alcohol abuse 466181489 Z13.39 Alcohol use screening tool administer ed Active or passive immunization 689000867 Z23 Declines flu 08/24/23 as [id number] Pati Hooks RN , [facility], [address] [place] [address] 08/15/2024 13:40:54 08/15/2024 14:08:00 Active or passive immunization 666389690 Z23 Declines flu 08/24/23 as Health Concerns Section Related Observation LastModified by Organization Detai ls LastModified Time None Recorded Concern Status LastModified by Organization Details LastModified Time None Recorded Advance Directives Directive None Recorded Payers Encounter Date Sequence Insurance Name Policy Number Policy Hogan Covered Member ID Hogan Member ID Guarantor Name 02/02/2023 1 [employer] [place] [id number] [place] [id number] Juan Manuel 03/01/2023 1 [employer] [place] [id number] [address] [place] [id number] Juan Manuel 04/13/2023 1 [employer] [place] [id number] [address] [place] [id number] Juan Manuel 08/24/2023 1 [employer] [place] [id number] [address] [place] [id number] Juan Manuel 08/15/2024 1 [employer] [place] [id number] [address] [place] [id number] Zambrano Notes Date Note Type Note Provider Name and Address Organization Details Recorded Time 02/02/2023 text/html sharp pain- R side of abdx 3 days like a ch-ch-ch more fullness then gasoverall feeling better since it startedcomes and goesfeels full, like when had c/seating and drinking like normalurinating, BM like normalstool- a little dark, tarry the other daytook pepto bismulno abnormal vaginal bleedingsome gasacid reflux- nono one else at home w/ similar symptomsfever- boris little sore throat, runny nose before the stomach pain started JAYY ZHU [address], [address], [facility] 02/02/2023 12:02:26 03/01/2023 text/html VMG RashReported bypatient.Location:abd omen; arms; legs Quality:not itchy;red;single;multi pleVMG URI Flu like SymptomsReported bypatient.Duration:sta rted 3 days ago Associated Symptoms:No fever/chills; No fatigue or malaise; Good oral intake; No headache; No significant muscle aches; No sweats; No congestion; No purulent nasal discharge; No sinus pressure; No cough; No sputum production; No wheezing; No shortness of breath; No ear pressure or fullness; No earache; No difficulty swallowing; No swollen glands; No chest pain with deep breath; No abdominal pain; No nausea; No vomiting; No diarrhea; No rash;Sore throatNotes:No fever, no chill has full rom of necktash on arms not itchy or painfulSick contacts daughter is healthy, had a fever 2 days last week, 8 yrs old, ok now. No rash ST x 3 days better todayRAsh x 2 daysEating and drinking ok Recently took augmentin to treat for infection 02/17 from urgent care, treated for perianal abscess. Completed Sunday last week. Zena Minaya DNP, APPLICATION SYSTEMS ADMINISTRATOR- [address] [place], [address], [facility] 03/01/2023 14:06:31 04/13/2023 text/html 1. 5 months ago perineal abscess and went to the urgent carewas given antibiotics and completely resolvedthis episode rectal area started hurting night area popped overnight and pain resolved.today she states she is asymptomatic but not sure if she needs antibiotics, since she was given meds at urgent care for the same symptoms. Lulu Barlow MD [address] [place] [address], [phone], [facility] 04/14/2023 21:35:19 08/24/2023 text/html Risk Assessment and Lifestyle Change Counseling 18-50Reported bypatient.Coronary Artery Disease Risk Assesment:No Family history of coronary artery disease; No personal history of diabetes; No history of peripheral vascular disease, AAA, or carotid disease; No personal history of coronary artery disease; Patient has low risk for coronary artery disease Breast Cancer Risk Assessment:No family history of breast cancer; No history of breast cancer or dcis Lung Cancer Risk Assessment:Never smoked; No symptoms of Lung Cancer; No asbestos exposure; Patient has low risk for lung cancer Cognitive/Behavioral Risk Assessment:No personal history of mental illness; No family history of mental illness Safety Risk Assessment:No evidence of abuse/neglect; Do you feel safe in your current relationship?YES Colon Cancer Risk:No family history of colon polyps or cancer; Patient has low risk for colon cancer Diet:Counseled about appropriate calcium intake and good dietary sources of calcium.; Counseled about the importance of maintaining a positive calcium balance and taking 1000 iu Vitamin D daily.; Discussed the value of a Mediterranean diet, and eating more fruits and vegetables Exercise counseling:Discussed the importance of daily physical activity; Discussed the importance of weight bearing exercise Safety:Counseled about protecting skin from the sun and lowering the risk of skin cancer Family Planning:Not using control; Does not desire going to school for medical codingsaw general surgeon for hemorrhoidsno problems right now with johnny Barlow MD [address] [place] [address], [phone], [facility] 08/24/2023 21:27:59 OBGyn Episode No OBEpisode recorded.
--- OUTSIDE RECORDS SUMMARY | 2024-10-22 16:09 | XMS_ITS | Continuity of Care Document ---
Author Organization [facility], , [facility], OFFICE Address [address] [place] [address] Care Team Providers Care Do All Operator Name Role Phone LULU ESCALERA Primary Care Provide r [facility] Security Architect Assessment No assessment recorded. Plan of Treatment Reminders Order Date Submit Date Provider Last Modified By Organization Details Last Modified Time Details Appointments None record ed. Lab None record ed. Referral None record ed. Procedures None record ed. Surgeries None record ed. Imaging None record ed. Medication Orders None record ed. Patient TargetsNo targets recorded. Patient InstructionsNo instructions recorded. Reason for Referral None Reported. Problems No Known Problems Procedures Surgical History Date Name Laterality Status Provider Name and Address Organization Details Recorded Time prevention-ros ual alcohol misuse screening completed Gina Allred [facility] 04/14/2021 07:39:35 4 Anoscopy completed Lulu Hightower MD [address] [place] [address], [phone] 12/21/2013 06:42:43 Imaging Results None recorded. Procedure Notes None recorded. Medical Equipment None [...] Not Available Not Available Not Available Vitals None Recorded Social History Question Answer Notes LastModified by Organizat ion Details LastModified Time Tobacco Smoking Status Never Smoker Lulu Hightower MD [address] [place] [address], [phone], [facility] 04/03/2014 15:00:44 What Is Your Level Of [...] Drinking Consumption (4+ Female, 5+ Male)? 0 [email or web address] Information not available 04/03/2014 Are There Any Guns Present In Your Home? No Information not available 12/22/2016 Live Alone Or With Others? With Others Srinath Mckeon [email or web address] Information not available 04/03/2014 Does The Patient Have Difficulty Speaking Gabonese? No Information not available 06/25/2015 Does The Patient Have Difficulty Reading Gabonese? No Information not available 06/25/2015 Patient Has Health Care Proxy Signed And In Chart Yes [email or web address] Information not available 11/22/2018 Marital Status carlos Inf ormation not available 12/19/2013 Mosquito Repellent Used Routinely No Information not available 12/22/2016 What Was The Date Of Your Most Recent Tobacco Screening? 08/24/2023 Information not available 08/24/2023 How Many Children Do You Have? 1 Lizzeth Female February 2016 [email or web address] Information not available 05/23/2016 Seat Belts Used [...] Organization Details LastModified Time [facility] Not available 04/03/2014 15:00:44 Father Malignant tumor of lung 65 65 [email or web address] illo Not available 08/24/2023 14:31:46 Sister Diabetes mellitus 37 opezdelcast illo Not available 08/24/2023 14:32:07 Medical History No medical history recorded. Gynecological History Statement/Question Response Menses Monthly N History of Abnormal Pap No Current Control Method None Date of LMP 10/13/2018 Obstetrics History GPAL:G 0 P 0 0 0 0 Immunizations Vaccine Type Date Status Note Provider Nam yajaira and Address Organization Details Recorded Time Tdap 04/03/2014 completed Not Available [facility] 10/25/2019 02:16:08 COVID-19, mRNA, LNP-S, PF, 30 mcg/0.3 mL dose 02/17/2021 completed Summer Coello CMA [facility], [facility] 02/21/2021 10:02:35 COVID-19, mRNA, LNP-S, PF, 30 mcg/0.3 mL dose 01/27/2021 completed Gina Allred MA [facility], [facility] 04/14/2021 11:39:59 COVID-19, mRNA, LNP-S, PF, 30 mcg/0.3 mL dose 02/17/2021 completed Gian Allred [facility] 04/14/2021 11:40:38 Influenza, split virus, quadrivalent, PF 08/24/2023 completed Lulu Hightower MD [address] [place] [address], [phone], [facility] 08/24/2023 21:23:56 Influenza, split virus, trivalent, PF 08/15/2024 completed Pati Hooks RN [facility], [facility] 08/15/2024 14:01:52 Past Encounters Encounter ID Performer Location Encounter Start Date Encounter Closed Date Diagnosis/Indication Diagnosis SNOMED-CT Code Diagnosis ICD10 Code Diagnosis Note [id number] Pati Hooks RN , [facility], OFFICE [address] [place] [phone] 08/15/2024 13:40:54 08/15/2024 14:08:00 Active or passive immunization [id number] Z23 Declines flu 08/24/23 as Health Concerns Section Related Observation LastModified by Organization Detai ls LastModified Time None Recorded Concern Status LastModified by Organization Details LastModified Time None Recorded Payers Encounter Date Sequence Insurance Name Policy Number Policy Hogan Covered Member ID Hogan Member ID Guarantor Name 08/15/2024 1 [employer] [facility] [id number] Srinath Mckeon [id number] [address] Zambrano OBGyn Episode No OBEpisode recorded.
== END 2024-10-22 13:41 | disposition home or self-care (01) ==
LOC: HO.MAMMO 13:40
PROVIDERS: PCP Family Medicine; Visit Provider Family Medicine
DX: Z12.31 Encounter for screening mammogram for malignant neoplasm of breast (principal)
CPT/HCPCS: 77063; 77067